=== PATIENT | male | born 1985 | race Caucasian/White ===

== ENCOUNTER 2018-12-22 20:29 | Emergency (ER) | payer BC ==
[2018-12-22 20:52] VITALS: BP 119/76
[2018-12-22] MEDS ORDERED: Tetan/Diph/Pertus SYR(Tdap)* 0.5 ML SYR(BOOSTRIX) use SYR IM ONE (21:11)
--- NOTE | 2018-12-22 21:12 | UC ---
Skin Complaint HPI - HPI Summary HPI Summary: 33-year-old male comes in with a chief complaint of puncture wound to the left foot. He excellently stepped on a nail that was sticking out from a piece of wood. It went through the sole of his shoe and entered just proximal to the second and third toes on the left foot. He removed the nail and cleansed the wound. No complaint of pain. Patient not sure when his last tetanus was. - History of Current Complaint Chief Complaint: UCSkin Time Seen by Provider: 12/22/18 20:59 Stated Complaint: LEFT FOOT COMPLAINT (STEPPED ON NAIL) Pain Intensity: 0 - Allergy/Home Medications Allergies/Adverse Reactions: Allergies Allergy/AdvReac Type Severity Reaction Status Date / Time Penicillins Allergy Rash Verified 12/22/18 20:46 Home Medications: Home Medications Albuterol HFA INHALER* [Ventolin HFA Inhaler*] 1 - 2 puff INH Q6H PRN 12/22/18 [ History Confirmed 12/22/18] PMH/Surg Hx/FS Hx/Imm Hx Previously Healthy: Yes Respiratory History: Asthma - Surgical History Surgical History: None - Family History Known Family History: Positive: Non-Contributory - Social History Alcohol Use: Occasionally Substance Use Type: None Smoking Status (MU): Never Smoked Tobacco Review of Systems All Other Systems Reviewed And Are Negative: Yes Constitutional: Positive: Negative Skin: Positive: Other - SEE HPI Eyes: Positive: Negative ENT: Positive: Negative Respiratory: Positive: Negative Cardiovascular: Positive: Negative Gastrointestinal: Positive: Negative Motor: Positive: Negative Neurovascular: Positive: Negative Musculoskeletal: Positive: Negative Neurological: Positive: Negative Psychological: Positive: Negative Is Patient Immunocompromised?: No Physical Exam Triage Information Reviewed: Yes Appearance: Well-Appearing, No Pain Distress, Well-Nourished Vital Signs: Initial Vital Signs Temp 98.3 F 12/22/18 20:47 Pulse 86 12/22/18 20:47 Resp 16 12/22/18 20:47 BP 119/76 12/22/18 20:47 Pulse Ox 99 12/22/18 20:47 Vital Signs Reviewed: Yes Eye Exam: Normal Eyes: Positive: Conjunctiva Clear Neck: Positive: Supple Respiratory: Positive: No respiratory distress Musculoskeletal: Positive: Strength Intact, ROM Intact Neurological Exam: Normal Neurological: Positive: Alert, Muscle Tone Normal Psychological Exam: Normal Psychological: Positive: Age Appropriate Behavior Skin: Positive: Other - PLANTAR ASPECT OF LEFT FOOT JUST PROXIMAL TO 2ND TOE THERE IS A NON BLEEDING PUNCTURE WOUND. NO SWELLING. NO ERYTHEMA, NO STREAKING, FULL ROM. Course/Dx - Course Course Of Treatment: Patient was given a TDap Here in clinic. An x-ray of the foot was ordered the patient declined. We discussed antibiotic prophylaxis. Patient is allergic to penicillin he reports that he had up with a bad rash and a swollen tongue. We discussed pseudomonas as a risk factor and prophylactic treatment with fluoroquinolone. At this time the patient declines antibiotic prophylaxis but did take a prescription for Levaquin to be used as any signs of infection. He also let me know that he would get reevaluated right away with any signs of infection. - Diagnoses Provider Diagnosis: Puncture wound of foot, left Discharge - Sign-Out/Discharge Documenting (check all that apply): Patient Departure All imaging exams completed and their final reports reviewed: No Studies - Discharge Plan Condition: Stable Disposition: HOME Prescriptions: Levofloxacin TAB* [Levaquin TAB*] 750 mg PO DAILY #10 tab Patient Education Materials: Puncture Wound (ED) Referrals: Angel King MD [Primary Care Provider] - Additional Instructions: FOLLOW UP WITH YOUR DOCTOR IF NOT COMPLETELY IMPROVED. GET RECHECKED SOONER IF YOUR CONDITION WORSENS; PAIN, SIGNS OF INFECTION, YOU FEEL ILL OR ANY QUESTIONS OR CONCERNS. - Billing Disposition and Condition Condition: STABLE Disposition: Home
== END 2018-12-22 21:20 | disposition home or self-care (01) ==
LOC: UCCORT 20:29
DX: S91.332A Puncture wound without foreign body, left foot, initial encounter (principal); W22.8XXA Striking against or struck by other objects, initial encounter; Z23 Encounter for immunization
CPT/HCPCS: 90471; 90715; 99202; G0463